=== PATIENT | male | born 1950 | race Caucasian/White ===

== ENCOUNTER 2022-05-16 12:32 | Emergency (ER) | payer MEDICARE, SELFPAY ==
[2022-05-16 12:54] VITALS: BP 140/80; PULSE 85; RESP 16; TEMP 36.7; O2SAT 99
--- NOTE | 2022-05-16 13:20 | ED.URI ---
HPI - URI/Sore Throat General Chief Complaint: Upper Respiratory Infection Stated Complaint: Sore Throat, Ears Source: patient Mode of arrival: ambulatory Limitations: no limitations History of Present Illness HPI Narrative: 71-year-old male presents to [facility] complaint of 8 day history of bilateral ear pressure, sore throat, nasal congestion. Patient reports that his was recently ill with flu-like symptoms. Patient is a nonsmoker. Patient has been taking [id number] ibuprofen with minimal relief. Patient denies nausea, vomiting, diarrhea, shortness of breath, wheezing or cough. MD elicited complaint: sore throat, nasal congestion and other (bilateral ear pressure ) Onset (ago): day(s) (8) Able to tolerate fluids by mouth: Yes Exacerbating factors: swallowing Treatments prior to arrival: ibuprofen Related Data Allergies Allergy/AdvReac Type Severity Reaction Status Date / Time tetanus immune globulin Allergy Severe MUSCLE Verified 05/16/22 12:44 ACHES Review of Systems Constitutional: Constitutional: Denies chills, Denies fatigue, Denies fever(s) and Denies weakness ENT: Denies vertigo, Denies dizziness, Reports nasal congestion and Reports sore throat Cardiovascular: Cardiovascular: Denies chest pain Respiratory: Respiratory: Denies cough, Denies dyspnea and Denies wheezing Gastrointestinal: Gastrointestinal: Denies diarrhea, Denies nausea and Denies vomiting Musculoskeletal: Musculoskeletal: Denies arthralgias and Denies joint swelling Integumentary/Breasts: Skin/Breast: Denies rash Neurologic: Denies dizziness, Denies syncope and Denies headache(s) Allergic/Immunologic: Allergic/Immunologic: Denies throat swelling, Denies tongue swelling and Denies wheezing PMFSH Past Medical History Medical History (Updated 05/16/22 @ 13:25 by Kellie Fox APRN) B-cell lymphoma Social History Social History (Updated 05/16/22 @ 13:22 by Kellie Fox APRN) Smoking status: Never smoker Comments At time of signature, I agree with nursing past medical, surgical, social and family history. There is no relevant family history pertinent to the presenting complaint. Exam Const: General: healthy appearing and no acute distress Nutritional Appearance: well nourished Orientation/consciousness: patient oriented x3 Limitations: no limitations HENMT: Head: normal to inspection Ears: external ears normal, EAC's normal and TM abnormal wth effusion serous bilateral Face/Nose/Sinus: Normal external nose present Face and sinus: sinus tenderness frontal Mouth: Yes moist mucous membranes Throat: uvula midline Other: Moderate erythema noted to posterior pharynx. Eyes: Conjunctivae: conjunctivae normal Neck: Neck: normal visual inspection, no lymphadenopathy and no meningeal signs Resp: Effort & Inspection: normal respiratory effort Auscultation: clear to auscultation bilaterally, no crackles, no rales, no rhonchi and no wheezes Cardio: Rate: regular rate Rhythm: regular rhythm Heart sounds: no murmurs Skin: General skin exam: normal color Rashes: no rashes Neuro: General: patient oriented x3 Speech: normal speech Psych: Affect: normal affect Attitude: cooperative Course Course Level of Care: Express Care Visit Vital Signs Vital signs: Vital Signs Temperature 36.7 C 05/16/22 12:54 Pulse Rate 85 05/16/22 12:54 Respiratory Rate 16 05/16/22 12:54 Blood Pressure 140/80 05/16/22 12:54 Pulse Oximetry 99 05/16/22 12:54 Oxygen Delivery Room Air 05/16/22 12:54 Temperature 36.7 C 05/16/22 12:54 Pulse Rate 85 05/16/22 12:54 Respiratory Rate 16 05/16/22 12:54 Blood Pressure 140/80 05/16/22 12:54 Pulse Oximetry 99 05/16/22 12:54 Oxygen Delivery Room Air 05/16/22 12:54 MDM - URI/Sore Throat MDM Narrative Medical decision making narrative: No rapid strep was completed due [facility]. patient agrees to ta
== END 2022-05-16 13:29 | disposition home or self-care (01) ==
PROVIDERS: Emergency Provider Nurse Practitioner Family; PCP Otolaryngology Pediatric Otolaryngology
DX: J02.9 Acute pharyngitis, unspecified (principal); J32.9 Chronic sinusitis, unspecified; Z85.72 Personal history of non-Hodgkin lymphomas
CPT/HCPCS: 99213; G0463

== ENCOUNTER 2022-08-20 09:50 | Emergency (ER) | payer MEDICARE, SELFPAY ==
--- NOTE | 2022-08-20 09:59 | ED.SKABFB ---
HPI - Skin/Abscess/Foreign Bdy General Chief complaint: Skin/Abscess/Foreign Body Stated complaint: non healing wounds Time Seen by Provider: 08/20/22 10:38 Source: patient and RN notes reviewed Mode of arrival: ambulatory Limitations: no limitations History of Present Illness HPI narrative: 71-year-old male presents with concern for wounds. He reports he was working on a car on Monday and had some abrasions on his right hand that have become red, slightly swollen. He reports some tenderness. He also reports an unrelated complaint some excoriation behind the left ear that has been oozing yellow drainage. He denies any swelling, tenderness to touch in that area. He reports he has had trouble with wound healing and recurrent infections since he was treated for B-cell lymphoma. He denies fever, aches, chills, sweats MD complaint: other (Wounds) Related Data Allergies Allergy/AdvReac Type Severity Reaction Status Date / Time tetanus immune globulin Allergy Severe MUSCLE Verified 08/20/22 10:16 ACHES Review of Systems Review of Systems: CONSTITUTIONAL: Denies malaise, chills, sweats, or fever. EYES: Denies redness, or discharge. CARDIOVASCULAR: Denies chest pain, palpitations, or edema. RESPIRATORY: Denies cough or dyspnea. GASTROINTESTINAL: Denies abdominal pain, nausea, vomiting SKIN: Reports abrasions of the left hand with surrounding redness, small swelling. Reports drainage from skin behind the left ear MUSCULOSKELETAL: Denies joint pain or myalgia. NEUROLOGIC: Denies headache. All systems reviewed & are unremarkable except as noted in HPI and below PMFSH Past Medical History Medical History (Updated 08/20/22 @ 10:45 by Linda Buchanan NP) B-cell lymphoma Social History Social History (Updated 05/16/22 @ 13:22 by Kellie Fox APRN) Smoking status: Never smoker Comments At time of signature, agree with nursing past medical, surgical, social and family history. There is no relevant family history pertinent to the presenting complaint Exam Narrative: GENERAL: Well-appearing, well-nourished, and in no acute distress. HEAD: Normocephalic, atraumatic. EYES: PERRLA, conjunctivae clear, and EOMI. ENT: Mucous membranes moist. NECK: Supple. No lymphadenopathy CHEST: Clear to auscultation. No respiratory distress. HEART: Regular rate and rhythm. SKIN: Warm, dry. Scabbed abrasions noted to the dorsal aspect of dull right hand with small amount of erythema, warmth without induration or edema. Mild excoriation noted behind the left ear with erythema in the crease behind the ear small 1 cm raised papule with a white center behind left ear without surrounding erythema, induration, no drainage noted NEURO: Alert and oriented x3. PSYCH: Normal mood and affect Course Course Emergency Course: Patient is aware of diagnosis, understands and agrees to treatment plan. Anticipatory guidance given. Patient agrees to follow-up as directed and is aware of reasons to seek care at the emergency department. Portions of this record may have been created with voice recognition software Level of Care: Express Care Visit Vital Signs Vital signs: Vital Signs Temperature 97.6 F 08/20/22 10:01 Pulse Rate 76 08/20/22 10:01 Respiratory Rate 16 08/20/22 10:01 Blood Pressure 159/87 H 08/20/22 10:01 Pulse Oximetry 99 08/20/22 10:01 Oxygen Delivery Room Air 08/20/22 10:01 Temperature 97.6 F 08/20/22 10:01 Pulse Rate 76 08/20/22 10:01 Respiratory Rate 16 08/20/22 10:01 Blood Pressure 159/87 H 08/20/22 10:01 Pulse Oximetry 99 08/20/22 10:01 Oxygen Delivery Room Air 08/20/22 10:01 Reviewed. MDM - Skin/Abscess/Foreign Bdy MDM Narrative Medical decision making narrative: Does not appear at this time to be erythema multiforme, bullous, SJS, TEN; no evidence at this time to suggest RMSF, endocarditis or Lyme disease; patient looks well, nontoxic and is tolerating oral intake; no neurol
[2022-08-20 10:01] VITALS: BP 159/87; PULSE 76; RESP 16; TEMP 36.4; O2SAT 99
--- NOTE | 2022-08-20 10:17 | PC.NURSE ---
Pt unsure of home medications. States he takes a water pill' but declines being on lasixs or furosemide.
== END 2022-08-20 10:53 | disposition home or self-care (01) ==
PROVIDERS: Emergency Provider Nurse Practitioner
DX: L03.113 Cellulitis of right upper limb (principal); S00.412A Abrasion of left ear, initial encounter; X58.XXXA Exposure to other specified factors, initial encounter; Z85.72 Personal history of non-Hodgkin lymphomas
CPT/HCPCS: 99213; G0463